=== PATIENT | male | born 1955 | race Caucasian/White ===

== ENCOUNTER 2023-12-22 20:38 | Emergency (ER) | payer MEDICARE, BC ==
[2023-12-22] MEDS: Lidocaine 2% HCl 6 ML Jel ONE (21:09)
[2023-12-22 21:28] LABS: BILIRUBIN,URINE NEGATIVE (NEGATIVE); GLUCOSE,URINE NORMAL (NORMAL); KETONES,URINE NEGATIVE (NEGATIVE); LEUKOCYTE ESTERASE,URINE NEGATIVE (NEGATIVE); NITRITE,URINE NEGATIVE (NEGATIVE); OCCULT BLOOD,URINE MODERATE (NEGATIVE); PROTEIN,URINE NEGATIVE (NEGATIVE); UROBILINOGEN,URINE NORMAL (NEGATIVE)
[2023-12-22 21:30] LABS: APPEARANCE,URINE CLEAR (CLEAR); COLOR,URINE YELLOW (YELLOW)
[2023-12-22 21:31] LABS: BACTERIA,URINE RARE (NS); RBC,URINE 0-5 (0-5); SQUAMOUS EPITHELIAL CELLS,UR RARE (NS,R,O); WBC,URINE NOT SEEN (0-5)
== END 2023-12-22 22:00 | disposition home or self-care (01) ==
LOC: FB.ED 20:38
DX: R33.9 Retention of urine, unspecified (principal); Z46.6 Encounter for fitting and adjustment of urinary device
CPT/HCPCS: 51702; 81001; 99284; A9270; 99283

== ENCOUNTER 2023-12-23 10:57 | Emergency (ER) | payer MEDICARE, BC ==
[2023-12-23] MEDS ORDERED: Lidocaine 2% HCl 6 ML Jel MM ONE (12:00)
== END 2023-12-23 12:10 | disposition home or self-care (01) ==
LOC: FB.ED 10:57
DX: T83.031A Leakage of indwelling urethral catheter, initial encounter (principal)
CPT/HCPCS: 99283